=== PATIENT | female | born 1990 | race Caucasian/White ===

== ENCOUNTER 2017-03-14 02:25 | Outpatient (CLI) | payer MEDICAID, OTHER ==
[~2017-03-14] VITALS: Ht 157.5 cm; Wt 82.5 kg
[~2017-03-14 02:25] MED LIST: ZOFRAN
[2017-03-14 02:43] VITALS: Ht 157.5 cm; Wt 82.5 kg
[2017-03-14 02:44] VITALS: BP 117/58; PULSE 77; RESP 18
[2017-03-14] MEDS ORDERED: PRENAT PO (02:46)
--- NOTE | 2017-03-14 05:05 | TRIAGE ---
OB Triage Datetime Report Generated by CPN: 03/14/2017 05:05 Datetime: 03/14/2017 04:55 Monitor Mode: External Monitor Mode: External US Pain Assessment Pain Scale: 8 Pain Presence: Intermittent Pain Type: Contraction Pain Location: Abdomen; Back Pain Goal: 2 Pain Relief Measures: Comfort Measures Vaginal Exam Dilatation (cms): 2.5 Effacement (%): 60 Station: -3 Datetime: 03/14/2017 03:45 Vaginal Exam Dilatation (cms): 2.5 Effacement (%): 60 Station: -3 Datetime: 03/14/2017 03:41 Stage of : OB Triage Datetime: 03/14/2017 03:14 Labor Evaluation Frequency: 1-4 Monitor Mode: External Duration (sec)2399: 40-100 Quality: Mild Pattern: Normal: <= 5 Contractions in 10 Minutes Resting Tone [place]: Relaxed Heart Rate FHR Baseline Rate: 135 Monitor Mode: External US Variability: Moderate 6-25 bpm Accelerations: 15X15 Decelerations: Variable Category: Category II Datetime: 03/14/2017 02:55 Monitor Mode: External Datetime: 03/14/2017 02:53 Vaginal Exam Dilatation (cms): 1.0 Effacement (%): 50 Station: -3 Datetime: 03/14/2017 02:48 Stage of : OB Triage Assessment Type: Triage EGA: 37.6 Maternal Assessment Level of Consciousness: Fully Conscious DTR's/Clonus: DTRs 2+; No Clonus Headache: Denies Blurred Vision: No Respiratory Effort: Unlabored; Regular Rhythm; Equal Expansion Breath Sounds, Left: Clear and Equal Breath Sounds, Right: Clear and Equal Nausea/Vomiting: Denies RUQ Epigastric Pain: Denies Lower Extremities Edema: None Degree: None Upper Extremities Edema: None Degree: None Facial Edema: None Temperature Route: Oral Datetime: 03/14/2017 02:47 Time of Arrival: 03/14/2017 02:20 Arrived By: Wheelchair Arrived From: Home Chief Complaint: CONTRACTIONS SINCE 2229 Movement: Present Contractions: Irregular Time Contractions Began: 03/13/2017 22:30 Rupture of Membranes: Denies Vaginal Bleeding: None Vaginal Discharge: Present Recent Sexual Intercouse: Denies Abdominal Trauma: Not Applicable Patient Complaints: Contractions Time Provider Notified: 03/14/2017 03:12 Provider Notified: BEN Initial Plan: AMBULATE Datetime: 03/14/2017 02:40 Monitor Mode: External Monitor Mode: External US Comments: MONITORS APPLIED, AUDIBLE HEART TONES
--- NOTE | 2017-03-14 05:12 | HP ---
Date/Time of Note Date/Time of Note DATE: 03/14/17 TIME: 05:04 OB - History Hx of Present Free Text/Dictation 26y.0 EDC 8/10 here with c/o uterine contractions snice 2230 last night. denies any leakage of fluid initial VE 1/50/-3 after ambulating reexamined by same nurse change to 2-3/60% -3 another exam in hr showed no change from 2nd exam patient stated that her pain level is 7/10 , bad enough not to go home. ADMITTED FOR EXPECTANT MANAGEMENT. Chief Complaint: UTERINE CONTRACTIONS Estimated Due Date: Mar 29, 2017 : 3 Para: 2 Spontaneous : 0 Therapeutic : 0 Care: Other Ultrasounds: Other Obstetrical Complications: None Medical Complications: None Past Family/Social History * Past Medical, Surgical, Family and Obstetric Histories reviewed from chart. Blood Type: Unknown Rubella: unknown RPR/VDRL: Unknown GBS Status: Unknown HBsAG: Unknown OB Admission Exam Vital Signs Vital Signs Vital Signs Date Time Temp Pulse Resp B/P Pulse Ox O2 Delivery O2 Flow Rate FiO2 03/14/17 02:44 98.0 77 18 117/58 Room Air Physical Exam HEENT: WNL Heart: Rhythm Normal Lungs: Clear, Equal Abdomen: WNL Extremities: Normal Reflexes: Normal Cervical Dilatation: other (2-3CM) Effacement: Other (60%) Station: -3 Membranes: Intact Amniotic Fluid: Unevaluable Heart Rate: 140's Accelerations: Accelerations Present Decelerations: No Decelerations Varibility: Moderate Contractions on Admission: < 5 Minutes Apart Intensity: Moderate OB Assessment/Plan Reason for admission: other (LATENT PHASE) Plan: Expectant Management JAVED CONTRERAS MD Mar 14, 2017 05:12
[2017-03-14] MEDS ORDERED: LACTATED RINGER'S 1,000 ML IV SCH (05:14)
[2017-03-14] MEDS ORDERED: OXYTOCIN 30 UNITS/LR 500 ML IV PRN (05:30)
[2017-03-14] MEDS ORDERED: METHYLERGONOVINE 0.2 MG INJ IM PRN (05:30)
[2017-03-14] MEDS ORDERED: BUTORPHANOL 2 MG INJ IV PRN (05:30)
[2017-03-14] MEDS ORDERED: LIDOCAINE 1% (MPF) 30 ML INJ INJ PRN (05:30)
[2017-03-14] MEDS ORDERED: OXYTOCIN 30 UNITS/LR 500 ML IV SCH ×2 (05:30)
[2017-03-14] MEDS ORDERED: AMPICILLIN 2 GM/NS (PMX) 100 ML IV ONE (05:30)
[2017-03-14] MEDS ORDERED: MISOPROSTOL 200 MCG TAB PR PRN (05:30)
[2017-03-14] MEDS ORDERED: CARBOPROST 250 MCG INJ IM PRN (05:30)
[2017-03-14] MEDS ORDERED: LACTATED RINGER'S 1,000 ML IV PRN (06:00)
[2017-03-14 07:40] LABS: BASOPHILS % 0.4 % (0.0-2.0); EOSINOPHILS # 0.1 10^3/ul (0.0-0.5); EOSINOPHILS % 0.7 % (0.0-7.0); HEMATOCRIT 29.3 % (37.0-47.0); LYMPHOCYTES # 2.1 10^3/ul (0.8-2.9); LYMPHOCYTES % 25.8 % (15.0-51.0); MEAN CORPUSCULAR HEMOGLOBIN 28.5 pg (29.0-33.0); MEAN CORPUSCULAR HGB CONC 34.1 g/dl (32.0-37.0); MEAN CORPUSCULAR VOLUME 83.5 fl (82.0-101.0); MONOCYTE # 0.7 10^3/ul (0.3-0.9); MONOCYTES % 8.9 % (0.0-11.0); NEUTROPHIL # 5.2 10^3/ul (1.6-7.5); PLATELET COUNT 184 10^3/UL (140-415); RED BLOOD COUNT 3.51 10^6/ul (4.20-5.40); RED CELL DISTRIBUTION WIDTH 12.3 % (11.5-14.5); WHITE BLOOD COUNT 8.2 10^3/ul (4.8-10.8)
[2017-03-14 07:58] LABS: INR 0.93; PARTIAL THROMBOPLASTIN TIME 28.1 Sec (25.0-35.0); PROTIME 12.5 Sec (12.2-14.2)
[2017-03-14] MEDS ORDERED: AMPICILLIN 1 GM/NS (PMX) 50 ML IV SCH (09:30)
--- NOTE | 2017-03-14 12:17 | PN ---
Triage Information Date/Time 03/14/2017 at 12: 11 PM Weeks of Gestation 37 weeks and 6 days : 3 Para: 2 Diabetes: none Hypertention: none Additional information 26-year-old with IUP at 37 weeks and 6 days presented with complaint of contractions. She initially was 1 cm 50-3. She had been observed for several hours in triage and repeat cervical exam showed 2 and half/60-3 but had no change since then the for 2-3 hours. She remained asymptomatic. She had no contraction the monitor. She denies any decreased movement or vaginal bleeding or leaking of fluid. Her antepartum course was non-complicated. DON March 29, 2017. She was therefore planned to be discharged home with a follow-up with her primary OB Dr. Chong in 2 days. Objective Vital Signs Date Time Temp Pulse Resp B/P Pulse Ox O2 Delivery O2 Flow Rate FiO2 03/14/17 02:44 98.0 77 18 117/58 Room Air Heart Rate: 130's Contractions: >10 Minutes Apart Results/Medications Result Diagram: 03/14/17 0655 Results 24 hrs Laboratory Tests Test 03/14/17 06:55 White Blood Count 8.2 Red Blood Count 3.51 L Hemoglobin 10.0 L Hematocrit 29.3 L Mean Corpuscular Volume 83.5 Mean Corpuscular Hemoglobin 28.5 L Mean Corpuscular Hemoglobin Concent 34.1 Red Cell Distribution Width 12.3 Platelet Count 184 Mean Platelet Volume 11.0 H Neutrophils % 64.0 Lymphocytes % 25.8 Monocytes % 8.9 Eosinophils % 0.7 Basophils % 0.4 Nucleated Red Blood Cells % 0.0 Neutrophils # 5.2 Lymphocytes # 2.1 Monocytes # 0.7 Eosinophils # 0.1 Basophils # 0.0 Nucleated Red Blood Cells # 0.0 Prothrombin Time 12.5 Prothrombin Time Ratio 1.0 INR International Normalized Ratio 0.93 Activated Partial Thromboplast Time 28.1 Hepatitis B Surface Antigen NEGATIVE Imaging Results None Assessment/Plan IUP at 37 weeks and 6 days False labor pain Patient did not have any cervical change Does not feel any contractions or any symptom at the time of discharge Denies any leaking of fluid or decreased movement or any other complaint Plan: DC home Follow-up in 2 days with her primary OB Dr. Chong Plan discussed the patient JULIANA JARA MD Mar 14, 2017 12:17
== END 2017-03-14 11:45 | disposition home or self-care (01) ==
LOC: L-D 02:25 → OBT 02:25 → UNDOADMIN 05:25 → L-D 05:25 → OBT 05:25
PROVIDERS: ATTEND Obstetrics & Gynecology
DX: O47.1 False labor at or after 37 completed weeks of gestation (principal); Z3A.37 37 weeks gestation of pregnancy
CPT/HCPCS: 85025; 85610; 85730; 86592; 86900; 86901; 87340; J0290; J7120; G0463

== ENCOUNTER 2017-03-25 14:58 | Inpatient (IN) | payer OTHER ==
[~2017-03-25] VITALS: Ht 157.5 cm; Wt 83.1 kg
[~2017-03-25 14:58] MED LIST changes: +PRENAT PO
[2017-03-25 15:37] VITALS: BP 112/63; PULSE 85; RESP 18
[2017-03-25 15:41] VITALS: Ht 157.5 cm; Wt 83.1 kg
[2017-03-25] MEDS ORDERED: LACTATED RINGER'S 1,000 ML IV SCH (15:44)
[2017-03-25] MEDS ORDERED: IBUPROFEN 600 MG TAB PO PRN (16:00)
[2017-03-25] MEDS ORDERED: AMPICILLIN 2 GM/NS (PMX) 100 ML IV ONE (16:00)
[2017-03-25] MEDS ORDERED: LIDOCAINE 1% (MPF) 30 ML INJ INJ PRN (16:00)
[2017-03-25] MEDS ORDERED: MISOPROSTOL 200 MCG TAB PR PRN (16:00)
[2017-03-25] MEDS ORDERED: LACTATED RINGER'S 1,000 ML IV PRN (16:00)
[2017-03-25] MEDS ORDERED: METHYLERGONOVINE 0.2 MG INJ IM PRN (16:00)
[2017-03-25] MEDS ORDERED: OXYTOCIN 30 UNITS/LR 500 ML IV PRN (16:00)
[2017-03-25] MEDS ORDERED: OXYTOCIN 30 UNITS/LR 500 ML IV SCH ×3 (16:00→17:30)
[2017-03-25] MEDS ORDERED: CARBOPROST 250 MCG INJ IM PRN (16:00)
[2017-03-25] MEDS ORDERED: BUTORPHANOL 2 MG INJ IV PRN (16:00)
[2017-03-25 16:39] LABS: BASOPHILS % 0.4 % (0.0-2.0); EOSINOPHILS % 0.4 % (0.0-7.0); HEMATOCRIT 30.4 % (37.0-47.0); HEMOGLOBIN 10.6 g/dl (12.0-16.0); LYMPHOCYTES # 1.6 10^3/ul (0.8-2.9); LYMPHOCYTES % 19.3 % (15.0-51.0); MEAN CORPUSCULAR HGB CONC 34.9 g/dl (32.0-37.0); MEAN CORPUSCULAR VOLUME 83.3 fl (82.0-101.0); MEAN PLATELET VOLUME 11.1 fl (7.4-10.4); MONOCYTE # 0.7 10^3/ul (0.3-0.9); MONOCYTES % 8.3 % (0.0-11.0); NEUTROPHIL # 5.8 10^3/ul (1.6-7.5); NEUTROPHILS % 71.4 % (39.0-77.0); PLATELET COUNT 226 10^3/UL (140-415); RED BLOOD COUNT 3.65 10^6/ul (4.20-5.40); RED CELL DISTRIBUTION WIDTH 12.1 % (11.5-14.5); WHITE BLOOD COUNT 8.1 10^3/ul (4.8-10.8)
[2017-03-25 16:51] LABS: INR 0.91; PARTIAL THROMBOPLASTIN TIME 27.9 Sec (25.0-35.0); PROTIME 12.2 Sec (12.2-14.2)
[2017-03-25] MEDS ORDERED: AMPICILLIN 1 GM/NS (PMX) 50 ML IV SCH (20:00)
[2017-03-25] MEDS: BUTORPHANOL 2 MG INJ IV PRN ×2 (20:21→21:05)
--- NOTE | 2017-03-25 21:52 | HP ---
Date/Time of Note Date/Time of Note DATE: 03/25/17 TIME: 21:51 OB - History Hx of Present Free Text/Dictation IN ACTIVE LABOR W/ SROM AT [facility] Care: Good Care Ultrasounds: Normal mid trimester US Obstetrical Complications: None Medical Complications: None Past Family/Social History * Past Medical, Surgical, Family and Obstetric Histories reviewed from chart. OB Admission Exam Vital Signs Vital Signs Vital Signs Date Time Temp Pulse Resp B/P Pulse Ox O2 Delivery O2 Flow Rate FiO2 03/25/17 15:37 98.4 85 18 112/63 Room Air Physical Exam HEENT: WNL Heart: Rhythm Normal Lungs: Clear, Equal Abdomen: WNL Extremities: Normal Reflexes: Normal Cervical Dilatation: 10cm Effacement: 100% Station: +3 Membranes: Ruptured Amniotic Fluid: Clear Heart Rate: 130's Accelerations: Accelerations Present Decelerations: No Decelerations Last 72 hours Lab Results CBC & BMP 03/25/17 16:15 OB Assessment/Plan Plan: Expectant Management ELIAS CABAN MD Mar 25, 2017 21:52
--- NOTE | 2017-03-25 21:53 | LDN ---
Date/Time of Note Date/Time of Note DATE: 03/25/17 TIME: 21:52 Delivery Summary NSD W/O COMPLICATIONS Placenta Delivered: Spontaneously Meconium: none Episiotomy: No Anesthesia type: None Estimated blood loss: 350 Sponge & Needle done & correct: Yes All needle counts correct: Yes Problems: ELIAS CABAN MD Mar 25, 2017 21:53
[2017-03-25 23:30] VITALS: BP 114/55; PULSE 72; RESP 19
[2017-03-25] MEDS: OXYTOCIN 30 UNITS/LR 500 ML IV SCH (23:49)
[2017-03-26] VITALS: BP 114/58; PULSE 77; RESP 20
[2017-03-26] MEDS ORDERED: CARBOPROST 250 MCG INJ IM PRN
[2017-03-26] MEDS ORDERED: DIPHENHYDRAMINE 25 MG CAP PO PRN
[2017-03-26] MEDS ORDERED: BENZOCAINE 20% 56 ML SPRAY TOP PRN
[2017-03-26] MEDS ORDERED: WITCH HAZEL/GLYCERIN PAD PR PRN
[2017-03-26] MEDS ORDERED: MAGNESIUM HYDROXIDE 30ML CUP PO PRN
[2017-03-26] MEDS ORDERED: ACETAMINOPHEN/CODEINE #3 TAB PO PRN
[2017-03-26] MEDS ORDERED: SENNA/DOCUSATE NA (8.6MG/50MG) TAB PO PRN
[2017-03-26] MEDS ORDERED: OXYTOCIN 30 UNITS/LR 500 ML IV PRN
[2017-03-26] MEDS ORDERED: ZOLPIDEM 5 MG TAB PO PRN
[2017-03-26] MEDS ORDERED: ACETAMINOPHEN 325 MG TAB PO PRN
[2017-03-26] MEDS ORDERED: MISOPROSTOL 200 MCG TAB PR PRN
[2017-03-26] MEDS ORDERED: METHYLERGONOVINE 0.2 MG INJ IM PRN
[2017-03-26] MEDS ORDERED: LANOLIN 7 GM TUBE TOP PRN
[2017-03-26] MEDS: IBUPROFEN 800 MG TAB PO SCH ×5 (00:15→21:51)
[2017-03-26] MEDS: OXYTOCIN 30 UNITS/LR 500 ML IV SCH (02:13)
[2017-03-26 04:04] VITALS: BP 100/59; PULSE 70; RESP 19
[2017-03-26] MEDS: LACTATED RINGER'S 1,000 ML IV* SCH ×4 (05:18→23:49)
[2017-03-26 07:43] LABS: BASOPHILS % 0.2 % (0.0-2.0); EOSINOPHILS # 0.1 10^3/ul (0.0-0.5); EOSINOPHILS % 0.7 % (0.0-7.0); HEMATOCRIT 27.6 % (37.0-47.0); HEMOGLOBIN 9.6 g/dl (12.0-16.0); LYMPHOCYTES # 1.2 10^3/ul (0.8-2.9); LYMPHOCYTES % 14.5 % (15.0-51.0); MEAN CORPUSCULAR HEMOGLOBIN 29.4 pg (29.0-33.0); MEAN CORPUSCULAR HGB CONC 34.8 g/dl (32.0-37.0); MEAN CORPUSCULAR VOLUME 84.7 fl (82.0-101.0); MEAN PLATELET VOLUME 10.8 fl (7.4-10.4); MONOCYTE # 0.7 10^3/ul (0.3-0.9); MONOCYTES % 7.7 % (0.0-11.0); NEUTROPHIL # 6.5 10^3/ul (1.6-7.5); NEUTROPHILS % 76.7 % (39.0-77.0); PLATELET COUNT 171 10^3/UL (140-415); RED BLOOD COUNT 3.26 10^6/ul (4.20-5.40); WHITE BLOOD COUNT 8.5 10^3/ul (4.8-10.8)
[2017-03-26 08:00] VITALS: BP 97/54; PULSE 76; RESP 18
[2017-03-26 12:00] VITALS: BP 98/55; PULSE 70; RESP 16
[2017-03-26 16:25] VITALS: BP 103/56; PULSE 62; RESP 16
[2017-03-26 19:30] VITALS: BP 121/66; PULSE 72; RESP 19
[2017-03-27 04:00] VITALS: BP 125/74; PULSE 69; RESP 20
[2017-03-27] MEDS: IBUPROFEN 800 MG TAB PO SCH ×2 (05:34→12:36)
[2017-03-27 08:00] VITALS: BP 121/58; PULSE 70; RESP 18
[2017-03-27] MEDS ORDERED: DIPHTH/TET/ACEL PERTUSS (ADULT) 0.5 ML VIAL IM* ONE (09:00)
[2017-03-27] MEDS ORDERED: VARICELLA VACCINE LIVE/PF 1,350 UNIT/0.5 ML ML SC* ONE (09:00)
[2017-03-27] MEDS ORDERED: MEASLES,MUMPS,RUBELLA VACCINE INJ SC* ONE (09:00)
--- NOTE | 2017-03-27 12:34 | DS ---
Date/Time of Note Date/Time of Note DATE: 03/27/17 TIME: 12:30 Obstetrical Discharge Record Final Diagnosis Final Diagnosis: Term delivered Vaginal Delivery Obstetrical Delivery: Laceration, Repaired Complications Gestational Age at Rupture new born is also doing well Condition on Discharge Physical Assessment Last Vitals: Post 2 Discharge Voiding: Yes Bowel Movement: Yes Breast: Soft, non-tender Fundus: Firm Abdomen and Incision: Current Medications Medications (Trade) Dose Ordered Sig/Jed Route PRN Reason Start Time Stop Time Status Last Admin Dose Admin Lactated Ringer's 1,000 ml @ 125 mls/hr Q8H IV 03/25/17 15:44 03/25/17 23:52 DC 03/25/17 15:58 Ampicillin 100 ml @ 100 mls/hr ONCE ONCE IV 03/25/17 16:00 03/25/17 16:59 DC 03/25/17 17:03 Ampicillin (Ampicillin 1 Gm/ NS (Pmx)) 50 ml @ 100 mls/hr Q4H IV 03/25/17 20:00 03/25/17 23:52 DC 03/25/17 21:03 Butorphanol Tartrate (Stadol) 1 mg Q2H PRN IV PAIN 03/25/17 16:00 03/25/17 23:52 DC Butorphanol Tartrate (Stadol) 2 mg Q2H PRN IV PAIN 03/25/17 16:00 03/25/17 23:52 DC 03/25/17 20:21 Lidocaine 30 ml 30 ml ONCE PRN INJ EPISIOTOMY/TEARING 03/25/17 16:00 03/25/17 23:52 DC Oxytocin/Lactated Ringer's 500 ml @ 125 mls/hr ONCE -MAY REPEAT X1 IV 03/25/17 16:00 03/25/17 23:52 DC 03/25/17 21:51 Oxytocin/Lactated Ringer's 500 ml @ 125 mls/hr ONCE IV 03/25/17 16:00 03/25/17 23:52 DC 03/25/17 21:51 Ibuprofen 600 mg 600 mg ONCE PRN PO Mild Pain (Pain Score 1-3) 03/25/17 16:00 03/25/17 23:52 DC Lactated Ringer's 1,000 ml @ 2,000 mls/hr Q30M PRN IV PRE-EPIDURAL BOLUS 03/25/17 16:00 03/25/17 16:00 DC Oxytocin/Lactated Ringer's 500 ml @ 0 mls/hr ONCE PRN IV For Hemorrhage Management 03/25/17 16:00 03/25/17 23:52 DC Methylergonovine Maleate (Methergine) 0.2 mg ONCE PRN IM VAGINAL BLEEDING 03/25/17 16:00 03/25/17 23:53 DC Carboprost Tromethamine (Hemabate) 250 mcg ONCE PRN IM VAGINAL BLEEDING 03/25/17 16:00 03/25/17 23:53 DC Misoprostol 1000 mcg 1,000 mcg ONCE PRN TX VAGINAL BLEEDING 03/25/17 16:00 03/25/17 23:53 DC Oxytocin/Lactated Ringer's 500 ml @ 0 mls/hr Q0M IV 03/25/17 17:30 03/25/17 23:51 DC 03/25/17 17:14 Oxytocin/Lactated Ringer's 500 ml @ 125 mls/hr Q4H IV 03/25/17 23:49 03/26/17 07:48 DC 03/26/17 02:13 Lactated Ringer's (Lr) 1,000 ml @ 125 mls/hr Q8H IV* 03/25/17 23:49 03/26/17 05:18 Ibuprofen (Motrin) 800 mg Q6 PO 03/26/17 00:00 03/27/17 05:34 Acetaminophen/ Codeine Phosphate (Tylenol No.3) 2 tab Q4H PRN PO PAIN LEVEL 6-10 03/26/17 00:00 Diphenhydramine HCl (Benadryl) 25 mg Q6H PRN PO PRURITUS 03/26/17 00:00 Zolpidem Tartrate (Ambien) 5 mg HS MAY REPEAT X 1 PRN PO INSOMNIA 03/26/17 00:00 Senna/Docusate Sodium (Senokot-S) 1 tab BID PRN PO CONSTIPATION 03/26/17 00:00 Magnesium Hydroxide (Milk Of Mag) 30 ml Q12H PRN PO CONSTIPATION 03/26/17 00:00 Witch Michelle/ Glycerin (Tucks Pads) 1 pad BEDSIDE MEDICATION PRN TX HEMORRHOID/EPISIOTMY PAIN 03/26/17 00:00 Benzocaine (Dermoplast [place]) 1 spray BEDSIDE MEDICATION PRN TOP HEMORRHOID/EPISIOTMY PAIN 03/26/17 00:00 03/26/17 00:15 Lanolin (Cpn-Q-Xfyymn) 1 applic BEDSIDE MEDICATION PRN TOP BEDSIDE FOR ESTELA TO NIPPLES 03/26/17 00:00 03/26/17 01:02 Measles/Mumps/ Rubella Vaccine Live (Mmr Ii Vaccine) 0.5 ml ONCE ONCE SC* 03/27/17 09:00 03/27/17 09:01 DC Diphtheria/ Tetanus/Acell Pertussis (Adacel) 0.5 ml ONCE ONCE IM* 03/27/17 09:00 03/27/17 09:01 DC 03/27/17 09:39 Varicella Virus Vaccine Live (Varivax Vaccine With Diluent) 1,350 unit ONCE ONCE SC* 03/27/17 09:00 03/27/17 09:01 DC Acetaminophen 650 mg 650 mg Q4H PRN PO ELEVATED TEMPERATURE 03/26/17 00:00 Oxytocin/Lactated Ringer's 500 ml @ 0 mls/hr ONCE PRN IV For Hemorrhage Management 03/26/17 00:00 Methylergonovine Maleate (Methergine) 0.2 mg ONCE PRN IM VAGINAL BLEEDING 03/26/17 00:00 Carboprost Tromethamine (Hemabate) 250 mcg ONCE PRN IM VAGINAL BLEEDING 03/26/17 00:00 Misoprostol (Cytotec) 1,000 mcg ONCE PRN TX VAGINAL BLEEDING 03/26/17 00:00 Episiotomy: healing well Calf Tenderness: No Patient Condition: Good JOLEEN MORENO MD Mar 27, 2017 12:33
[2017-03-27] MEDS: LACTATED RINGER'S 1,000 ML IV* SCH (12:36)
== END 2017-03-27 14:00 | disposition home or self-care (01) | DRG 775 ==
LOC: L-D 14:58 → OBT 14:58 → L-D 14:59 → OBT 15:00 → PP1 23:17
PROVIDERS: ADMIT Obstetrics & Gynecology; ATTEND Obstetrics & Gynecology
PROC: 10E0XZZ Delivery of Products of Conception, External Approach (ICD-10-PCS; principal; 2017-03-25)
PROC: 3E0234Z Introduction of Serum, Toxoid and Vaccine into Muscle, Percutaneous Approach (ICD-10-PCS; 2017-03-27)
DX: O80 Encounter for full-term uncomplicated delivery (principal); Z23 Encounter for immunization; Z37.0 Single live birth; Z3A.39 39 weeks gestation of pregnancy
CPT/HCPCS: 85025; 85610; 85730; 86592; 86900; 86901; 87340; 90715; 90716; J0290; J0595; J2590; J7120